=== PATIENT | male | born 1955 | race Caucasian/White ===

== ENCOUNTER 2016-11-22 14:18 | Emergency (ER) | payer BC ==
[~2016-11-22] VITALS: Ht 175.3 cm; Wt 105.4 kg
[~2016-11-22 14:18] MED LIST: ALBU18HF PO; ALBU8.5H3 INH; AMLO10TA2 PO; ASPI-496 PO; ASPI-650 PO; BACL20TA PO; BUDE10.2 INH; CALC-55 PO; CYCL-259 PO; CYCL7.5T25 PO; DOCU50CA6 PO; DOXY100T PO; FURO80TA77 PO; GABA600T2 PO; HOME OXYGEN INH; HYDR-3144 PO; HYDR-3307 PO; IBUP200T5 PO; LACT10SO28 PO; LOSA100T6 PO; MULT-717 PO; OMEP-110 PO; OMEP20CA14 PO; OXYC5TAB3 PO; OXYGEN INH; POLY17PO5 PO; POTA20PA PO; POTA99TA PO; PRAV40TA2 PO; PRED10TA14 PO; PRED20TA PO; SENN1TAB7 PO; [UNRECOGNIZED DRUG - CODE] PO
[2016-11-22] MEDS ORDERED: ONDANSETRON 2MG/ML, 2ML IVPush ONE (15:00)
[2016-11-22] MEDS ORDERED: SODIUM CHLORIDE FLUSH 10ML SYR IVF ONE (15:00)
[2016-11-22] MEDS ORDERED: MORPHINE SULFATE 4 MG/ML, 1ML ONE ×2 (15:04→15:42)
[2016-11-22] MEDS ORDERED: ONDANSETRON 2MG/ML, 2ML ONE (15:04)
[2016-11-22] MEDS: MORPHINE SULFATE 4 MG/ML, 1ML IVPush PRN ×2 (15:16→15:46)
[2016-11-22] MEDS ORDERED: ZOLP10TA5 PO (15:38)
[2016-11-22 15:47] LABS: BLOOD UREA NITROGEN 13 mg/dL (7-18)
[2016-11-22 15:50] LABS: ASPARTATE AMINO TRANSFERASE 18 U/L (15-37)
[2016-11-22 17:07] VITALS: BP 126/85
== END 2016-11-22 17:09 | disposition home or self-care (01) ==
LOC: ED 17:00
DX: M51.36 Other intervertebral disc degeneration, lumbar region (principal); K92.1 Melena; R19.7 Diarrhea, unspecified; E78.5 Hyperlipidemia, unspecified; J44.9 Chronic obstructive pulmonary disease, unspecified; I10 Essential (primary) hypertension
CPT/HCPCS: 36415; 80053; 81003; 83690; 85025; 85610; 85730; 93005; 96374; 96375; 99285; J2405

== ENCOUNTER → 2018-04-09 | Outpatient (CLI) | payer MEDICARE ==
[~2018-04-09] MED LIST changes: -ALBU8.5H3 INH; +ALBU8.5H8 INH; -AMLO10TA2 PO; +AMLO10TA6 PO; +ATOR40TA78 PO; +BACL-19 PO; +CHLO25TA PO; +CHOL200074 PO; +CIPR500T8 PO; +FLUT9.9S NS; -HYDR-3144 PO; +HYDR-3245 PO; +IBUP-1484 PO; -IBUP200T5 PO; -LOSA100T6 PO; +LOSA100T7 PO; -POTA20PA PO; +POTA20PA31 PO; -POTA99TA PO; +POTA99TA2 PO; +REGADENOSON 0.4 MG/5 ML SYRINGE ONE; -SENN1TAB7 PO; +SENN1TAB8 PO; +TRAZ-136 PO; +ZOLP10TA5 PO
== END | disposition home or self-care (01) ==
LOC: CVU 11:40
PROVIDERS: ATTEND Internal Medicine Cardiovascular Disease
DX: Z01.810 Encounter for preprocedural cardiovascular examination (principal); I31.3 Pericardial effusion (noninflammatory); I10 Essential (primary) hypertension; E78.5 Hyperlipidemia, unspecified
CPT/HCPCS: 78452; 93017; 93306; A9502; J2785

== ENCOUNTER 2018-04-21 19:31 | Emergency (ER) | payer MEDICARE ==
[~2018-04-21] VITALS: Ht 175.3 cm; Wt 99.5 kg
[~2018-04-21 19:31] MED LIST changes: -REGADENOSON 0.4 MG/5 ML SYRINGE ONE
[2018-04-21] MEDS ORDERED: ONDANSETRON 2MG/ML, 2ML IVPush ONE (20:00)
[2018-04-21] MEDS ORDERED: MORPHINE SULFATE 4 MG/ML, 1ML ONE ×2 (20:26→21:41)
[2018-04-21] MEDS ORDERED: ONDANSETRON 2MG/ML, 2ML ONE (20:26)
[2018-04-21] MEDS: MORPHINE SULFATE 4 MG/ML, 1ML IVPush PRN ×2 (20:28→21:43)
[2018-04-21 20:38] LABS: BASOPHILS # (AUTO) 0.02 x10^3/uL (0-0.1); BASOPHILS % (AUTO) 0 % (0-1); EOSINOPHILS # (AUTO) 0.17 x10^3/uL (0-0.4); EOSINOPHILS % (AUTO) 2 % (1-7); LYMPHOCYTES # (AUTO) 1.26 x10^3/uL (1-3.4); LYMPHOCYTES % (AUTO) 18 % (22-44); MD NO; MEAN CORPUSCULAR HEMOGLOBIN 31.1 pg (27.5-34.5); MEAN CORPUSCULAR HGB CONC 34.3 g/dL (33.2-36.2); MEAN CORPUSCULAR VOLUME 90.8 fL (81-97); MEAN PLATELET VOLUME 7.4 fL (7.4-10.4); MONOCYTES # (AUTO) 0.56 x10^3/uL (0.2-0.8); MONOCYTES % (AUTO) 8 % (2-9); NEUTROPHILS # (AUTO) 5.18 x10^3/uL (1.8-6.8); NEUTROPHILS % (AUTO) 72 % (42-75); PLATELET COUNT 191 x10^3/uL (130-400); RED BLOOD COUNT 4.32 x10^6/uL (4.38-5.82); RED CELL DISTRIBUTION WIDTH 13.6 % (9.4-14.8)
[2018-04-21 20:45] LABS: MICROSCOPIC AUTO
[2018-04-21 20:50] LABS: ALANINE AMINOTRANSFERASE 32 U/L (12-78); ALBUMIN 3.8 g/dL (3.4-5.0); ANION GAP 8 mmol/L (5-15); CALCIUM 8.6 mg/dL (8.5-10.1); CHLORIDE 103 mmol/L (98-107); CREATININE 1.06 mg/dL (0.7-1.3)
[2018-04-21 20:55] LABS: ALKALINE PHOSPHATASE 84 U/L (45-117); BILIRUBIN,TOTAL 0.3 mg/dL (0.2-1.0); TROPONIN I < 0.015 ng/mL (0.000-0.045)
[2018-04-21 20:56] LABS: CULTURE INDICATED? YES
[2018-04-21] MEDS ORDERED: DIPHENHYDRAMINE 50 MG/ML, 1ML ONE (21:13)
[2018-04-21] MEDS ORDERED: DIPHENHYDRAMINE 50 MG/ML, 1ML IVPush ONE (21:30)
[2018-04-21] MEDS ORDERED: SODIUM CHLORIDE 0.9% 1,000ML IVBOLUS ONE (21:30)
[2018-04-21] MEDS ORDERED: OMNIPAQUE 350 MG/ML, 100ML BOTTLE ONE (21:36)
[2018-04-21 22:36] VITALS: BP 156/90
== END 2018-04-21 22:38 | disposition home or self-care (01) ==
LOC: ED 21:12
DX: R10.84 Generalized abdominal pain (principal); R05 Cough; I10 Essential (primary) hypertension; R06.02 Shortness of breath; E78.5 Hyperlipidemia, unspecified; J44.9 Chronic obstructive pulmonary disease, unspecified; Z90.49 Acquired absence of other specified parts of digestive tract
CPT/HCPCS: 36415; 71045; 74177; 80053; 81001; 83605; 83690; 84484; 85025; 87086; 93005; 96374; 96375; 96376; 99285; J1200; J2405; J7030; Q9967

== ENCOUNTER 2018-04-27 17:49 | Emergency (ER) | payer MEDICARE ==
[2018-04-27] MEDS ORDERED: MAALOX/HYOSCYAMINE/LIDOCAINE 45 ML BTL ONE (18:12)
[2018-04-27] MEDS ORDERED: MAALOX/HYOSCYAMINE/LIDOCAINE 45 ML BTL PO ONE (18:30)
[2018-04-27 18:31] LABS: BASOPHILS % (AUTO) 0 % (0-1); EOSINOPHILS # (AUTO) 0.19 x10^3/uL (0-0.4); EOSINOPHILS % (AUTO) 3 % (1-7); LYMPHOCYTES # (AUTO) 1.27 x10^3/uL (1-3.4); LYMPHOCYTES % (AUTO) 23 % (22-44); MD NO; MEAN CORPUSCULAR HEMOGLOBIN 31.3 pg (27.5-34.5); MEAN CORPUSCULAR HGB CONC 34.4 g/dL (33.2-36.2); MONOCYTES # (AUTO) 0.52 x10^3/uL (0.2-0.8); MONOCYTES % (AUTO) 9 % (2-9); NEUTROPHILS # (AUTO) 3.66 x10^3/uL (1.8-6.8); NEUTROPHILS % (AUTO) 65 % (42-75); PLATELET COUNT 234 x10^3/uL (130-400); RED BLOOD COUNT 4.32 x10^6/uL (4.38-5.82); RED CELL DISTRIBUTION WIDTH 13.6 % (9.4-14.8)
[2018-04-27 18:43] LABS: INTERNATIONAL NORMALIZED RATIO 0.96 (0.93-1.1)
[2018-04-27 18:48] LABS: ALANINE AMINOTRANSFERASE 40 U/L (12-78); ALBUMIN 3.6 g/dL (3.4-5.0); ANION GAP 11 mmol/L (5-15); CALCIUM 8.7 mg/dL (8.5-10.1); CHLORIDE 101 mmol/L (98-107); CREATININE 0.75 mg/dL (0.7-1.3)
[2018-04-27 18:52] LABS: ALKALINE PHOSPHATASE 98 U/L (45-117); BILIRUBIN,TOTAL 0.3 mg/dL (0.2-1.0); TOTAL PROTEIN 7.2 g/dL (6.4-8.2); TROPONIN I < 0.015 ng/mL (0.000-0.045)
[2018-04-27] MEDS ORDERED: LORazepam 2 MG/ML, 1ML ONE (19:20)
[2018-04-27] MEDS ORDERED: LORazepam 2 MG/ML, 1ML IVPush ONE (19:30)
[2018-04-27] MEDS ORDERED: ALBUTEROL/IPRATROPIUM 2.5MG/0.5MG, 3 ML NPPB ONE (19:30)
[2018-04-27 20:25] VITALS: BP 141/85
[2018-04-27 21:10] LABS: TROPONIN I < 0.015 ng/mL (0.000-0.045)
== END 2018-04-27 21:53 | disposition home or self-care (01) ==
LOC: ED 20:19
DX: R07.89 Other chest pain (principal); K21.0 Gastro-esophageal reflux disease with esophagitis; J44.9 Chronic obstructive pulmonary disease, unspecified; E78.5 Hyperlipidemia, unspecified; F17.200 Nicotine dependence, unspecified, uncomplicated; I10 Essential (primary) hypertension
CPT/HCPCS: 36415; 71045; 80053; 83880; 84484; 85025; 85610; 85730; 93005; 94640; 96374; 99285; J2060; J7620

== ENCOUNTER 2020-11-11 16:30 | Emergency (ER) | payer OTHER ==
[~2020-11-11] VITALS: Ht 175.3 cm; Wt 91.0 kg
[~2020-11-11 16:30] MED LIST changes: +ALPR1TAB2 PO; +AMLO-211 PO; -AMLO10TA6 PO; -ASPI-650 PO; +ASPI325T20 PO; -CYCL-259 PO; +CYCL10TA2 PO; -GABA600T2 PO; +GABA600T7 PO; -HYDR-3245 PO; +HYDR-3248 PO; -HYDR-3307 PO; +HYDR1TAB53 PO; -IBUP-1484 PO; +IBUP-1902 PO; +LOSA100T14 PO; -LOSA100T7 PO; -OMEP20CA14 PO; +OMEP20CA20 PO; -OXYC5TAB3 PO; +OXYC5TAB98 PO; +SENN-177 PO; -SENN1TAB8 PO; -TRAZ-136 PO; +TRAZ50TA66 PO
--- NOTE | 2020-11-11 17:47 | NUR ---
PT PLACED IN GOWN AND ON ALL ROOM MONITORING. EKG COMPLETED AT BS. WATER PROVIDED AFTER CONFIRMED WITH ERP. PT WATCHING TV, NAD. PT STATES CHEST TIGHTNESS BETTER AT THIS TIME. URINAL AT BS, CALL LIGHT WITHIN REACH.
[2020-11-11 17:50] LABS: BASOPHILS % (AUTO) 0 % (0-1); EOSINOPHILS % (AUTO) 1 % (1-7); LYMPHOCYTES % (AUTO) 13 % (22-44); MEAN CORPUSCULAR HEMOGLOBIN 30.5 pg (27.5-34.5); MEAN CORPUSCULAR HGB CONC 34.1 g/dL (33.2-36.2); MEAN PLATELET VOLUME 6.6 fL (7.4-10.4); MONOCYTES % (AUTO) 8 % (2-9); NEUTROPHILS % (AUTO) 79 % (42-75); PLATELET COUNT 186 x10^3/uL (130-400); RED BLOOD COUNT 4.59 x10^6/uL (4.38-5.82); RED CELL DISTRIBUTION WIDTH 13.6 % (9.4-14.8)
[2020-11-11 17:51] LABS: MD NO
[2020-11-11 17:57] LABS: ALBUMIN 4.2 g/dL (3.4-5.0); ANION GAP 5 mmol/L (5-15); CALCIUM 9.3 mg/dL (8.5-10.1); CHLORIDE 103 mmol/L (98-107); CREATININE 0.77 mg/dL (0.7-1.3)
[2020-11-11 18:01] LABS: TROPONIN I < 0.015 ng/mL (0.000-0.045)
--- NOTE | 2020-11-11 18:13 | NUR ---
CALL TO XRAY TO INQUIRE ON DELAY.
--- NOTE | 2020-11-11 18:55 | NUR ---
Recieved report from Jaky WHYTE
[2020-11-11] MEDS ORDERED: ALBUTEROL/IPRATROPIUM 2.5MG/0.5MG, 3 ML NPPB ONE (19:00)
--- NOTE | 2020-11-11 19:03 | NUR ---
Pt sitting comfortably in bed watching TV, at bedside to discuss POC, pt urinal emptied and replaced, positioned for comfort, SANDRA.
--- NOTE | 2020-11-11 19:06 | NUR ---
REPORT TO KEMAL WHYTE, TRANSFER OF CARE AT THIS TIME.
[2020-11-11] MEDS ORDERED: ALBUTEROL/IPRATROPIUM 2.5MG/0.5MG, 3 ML ONE (19:08)
--- NOTE | 2020-11-11 19:17 | NUR ---
Pt given Neb per MAR, WCTM
[2020-11-11 19:38] VITALS: BP 155/87
--- NOTE | 2020-11-11 19:43 | NUR ---
Pt reports ease of breathing after neb tx, pt has unhook himself from all monitors and changed back into clothing, denies set of vital signs.
== END 2020-11-11 20:02 | disposition home or self-care (01) ==
LOC: ED 17:13
DX: J43.9 Emphysema, unspecified (principal); I10 Essential (primary) hypertension; E78.5 Hyperlipidemia, unspecified; K21.9 Gastro-esophageal reflux disease without esophagitis; Z90.49 Acquired absence of other specified parts of digestive tract; F17.200 Nicotine dependence, unspecified, uncomplicated
CPT/HCPCS: 36415; 71045; 80048; 82040; 84484; 85025; 93005; 94640; 99285; J7512

== ENCOUNTER 2020-11-14 22:06 | Emergency (ER) | payer OTHER ==
[~2020-11-14] VITALS: Ht 175.3 cm; Wt 96.4 kg
--- NOTE | 2020-11-14 22:32 | NUR ---
PT PRESENTS TO ER WITH COMPLAINTS OF ABD PAIN AND CONSTIPATION. PT HOOKED UP TO ALL MONITORS AND IN GOWN. PT RESTING ON GURNEY. ERP AT BEDSIDE.
[2020-11-14] MEDS ORDERED: LORazepam 1MG TABLET ONE (22:53)
[2020-11-14 22:58] LABS: BASOPHILS % (AUTO) 0 % (0-1); EOSINOPHILS % (AUTO) 0 % (1-7); LYMPHOCYTES % (AUTO) 12 % (22-44); MEAN CORPUSCULAR HGB CONC 34.4 g/dL (33.2-36.2); MEAN PLATELET VOLUME 6.9 fL (7.4-10.4); MONOCYTES % (AUTO) 7 % (2-9); NEUTROPHILS % (AUTO) 80 % (42-75); PLATELET COUNT 210 x10^3/uL (130-400); RED BLOOD COUNT 4.55 x10^6/uL (4.38-5.82); RED CELL DISTRIBUTION WIDTH 13.9 % (9.4-14.8)
[2020-11-14] MEDS ORDERED: LORazepam 1MG TABLET PO ONE (23:00)
[2020-11-14 23:01] LABS: MD NO
[2020-11-14 23:10] LABS: ALANINE AMINOTRANSFERASE 36 U/L (12-78); ALBUMIN 3.8 g/dL (3.4-5.0); ANION GAP 7 mmol/L (5-15); CHLORIDE 105 mmol/L (98-107); CREATININE 1.02 mg/dL (0.7-1.3)
[2020-11-14 23:15] LABS: ALKALINE PHOSPHATASE 69 U/L (45-117); BILIRUBIN,TOTAL 0.3 mg/dL (0.2-1.0); TOTAL PROTEIN 7.1 g/dL (6.4-8.2); TROPONIN I < 0.015 ng/mL (0.000-0.045)
--- NOTE | 2020-11-14 23:19 | NUR ---
PT EDUCATED ON NEED FOR URINE SAMPLE AT THIS TIME, STS UNABLE TO GO AT THIS TIME, PT GIVEN URINAL FOR FUTURE USE
--- NOTE | 2020-11-14 23:23 | NUR ---
URINE SENT TO LAB
[2020-11-14 23:38] VITALS: BP 135/89
--- NOTE | 2020-11-14 23:38 | NUR ---
PT RESTING COMFORTABLY ON GURNEY, DENIES NEEDS AT THIS TIME
[2020-11-14 23:59] LABS: MICROSCOPIC NOT IND
--- NOTE | 2020-11-15 00:35 | NUR ---
Patient given discharge instructions and they have confirmed that they understand the instructions. Patient ambulatory with steady gait.
== END 2020-11-15 00:37 | disposition home or self-care (01) ==
LOC: ED 22:27
DX: K59.00 Constipation, unspecified (principal); R10.32 Left lower quadrant pain; I10 Essential (primary) hypertension; J44.1 Chronic obstructive pulmonary disease with (acute) exacerbation; Z90.49 Acquired absence of other specified parts of digestive tract
CPT/HCPCS: 36415; 74022; 80053; 81003; 83690; 84484; 85025; 99284